=== PATIENT | female | born 1940 | race Caucasian/White ===

== ENCOUNTER → 2016-10-16 | Outpatient (CLI) | payer MEDICARE, OTHER ==
--- NOTE | 2016-10-20 14:48 | MAM ---
EXAM DESCRIPTION: Screening Mammogram,Bilateral CLINICAL HISTORY: 76 yearsFemaleSCREENING. Postmenopausal. Taking HRT five or more years ago.. COMPARISON: Digital 2-D screening bilateral examination 10/15/2015.. Report from prior examination also reviewed. TECHNIQUE: Bilateral CC and MLO projection and LM/ML full-field images, spots digital screening mammographic technique. CAD was utilized. FINDINGS: The breast parenchymal density pattern is: Heterogeneously dense breast tissue, which may obscure small masses. No skin thickening or nipple retraction stable small group of heterogeneous calcifications at the 9:00 position of the posterior third of the left breast. Other bilateral solitary microcalcifications. Bilateral axillary lymph nodes.. No focal, stellate mass or density, focal asymmetry , and no suspicious microcalcifications bilaterally. Stable mammograms compared to the prior study September 2015. IMPRESSION: BI-RADS CATEGORY: 2 - BENIGN FINDINGS. FOLLOW UP: Routine digital bilateral screening, one year interval from September 2016. Written communication explaining the findings and follow-up, will be mailed to the patient and referring health care provider. According to the [employer], yearly mammograms are recommended starting at age 40 and continuing as long as a woman is in good health. Any breast change noted on a breast self-exam should be reported promptly to the patient's healthcare provider. Breast MRI is recommended for women with an approximately 20-25% or greater lifetime risk of breast cancer, including women with a strong family history of breast or ovarian cancer and women who have been treated for Hodgkin's disease. A negative mammographic report should not delay tissue diagnosis in patients with significant clinical history or physical findings. Extremely dense breast tissue limits the sensitivity of digital mammography. Electronically signed by: Ayush Del Cid MD 10/20/2016 2:47 PM CDT
== END ==
LOC: MAMMO 09:00
PROVIDERS: ATTEND Family Medicine
DX: Z12.31 Encounter for screening mammogram for malignant neoplasm of breast (principal)

== ENCOUNTER → 2017-03-12 | Outpatient (CLI) | payer MEDICARE, OTHER | END | disposition home or self-care (01) | LOC: GMAL 10:47 | PROVIDERS: ATTEND Family Medicine | DX: D51.3 Other dietary vitamin B12 deficiency anemia (principal); E55.9 Vitamin D deficiency, unspecified ==

== ENCOUNTER → 2017-04-16 | Outpatient (CLI) | payer OTHER ==
--- NOTE | 2017-04-17 10:56 | US ---
EXAM DESCRIPTION: Soft Tissue,Head/Neck CLINICAL HISTORY: 77 years, Female, THYROID NODULE COMPARISON: None. FINDINGS: Thyroid ultrasound demonstrates mild multinodular goiter. Diffuse inhomogeneity of the parenchymal echotexture.. The right lobe measures 4.4 x 1.8 x 2.5 cm. The left lobe measures 2.5 x 0.9 x 0.9 cm. Several small nodules are seen. No dominant nodule. IMPRESSION: 1. Mild multinodular goiter. Electronically signed by: Dipesh Fox MD 04/17/2017 10:55 AM [facility]
== END ==
LOC: US 09:33
PROVIDERS: ATTEND Family Medicine
DX: E04.1 Nontoxic single thyroid nodule (principal)

== ENCOUNTER → 2017-04-21 | Outpatient (CLI) | payer OTHER | LOC: GMAL 10:35 | PROVIDERS: ATTEND Family Medicine | DX: E04.1 Nontoxic single thyroid nodule (principal) ==

== ENCOUNTER → 2017-10-22 | Outpatient (CLI) | payer OTHER ==
--- NOTE | 2017-10-26 09:50 | MAM ---
EXAM DESCRIPTION: 3D Screening BILATERAL : Digital Mammography. CLINICAL HISTORY: 77 years Female SCREENING . No complaints. Mother with breast cancer. Childbirth. Postmenopausal. Has taken HRT 5 or more years ago. COMPARISON: 2-D digital screening bilateral study 10/16/2016. Reports from prior examinations 2016 and 2015 also reviewed. TECHNIQUE: Bilateral CC and MLO projection full-field images, 3-D tomosynthesis digital mammographic technique. CAD not utilized. FINDINGS: The breast parenchymal density pattern is: Scattered areas of fibroglandular density. No skin thickening or nipple retraction. . Bilateral axillary lymph nodes. Stable small group of calcifications at the 900 clock position of the middle third of the left breast. Stable bilateral solitary coarse and microcalcifications. No new focal, stellate mass or density, focal asymmetry , and no suspicious microcalcifications bilaterally. Stable mammograms compared to prior study, taking into account differences in mammographic technique. IMPRESSION: BI-RADS CATEGORY: 2 - BENIGN FINDINGS. FOLLOW UP: Routine digital bilateral screening, one year interval from October 2017. Written communication explaining the IMPRESSION and follow-up, will be mailed to the patient and referring health care provider. According to the [employer], yearly mammograms are recommended starting at age 40 and continuing as long as a woman is in good health. Any breast change noted on a breast self-exam should be reported promptly to the patient's healthcare provider. Breast MRI is recommended for women with an approximately 20-25% or greater lifetime risk of breast cancer, including women with a strong family history of breast or ovarian cancer and women who have been treated for Hodgkin's disease. A negative mammographic report should not delay tissue diagnosis in patients with significant clinical history or physical findings. Extremely dense breast tissue limits the sensitivity of digital mammography. Electronically signed by: Ayush Del Cid MD 10/26/2017 9:49 AM CDT
== END ==
LOC: MAMMO 14:00
PROVIDERS: ATTEND Family Medicine
DX: Z12.31 Encounter for screening mammogram for malignant neoplasm of breast (principal)

== ENCOUNTER → 2018-04-06 | Outpatient (CLI) | payer OTHER | LOC: GMAL 10:55 | PROVIDERS: ATTEND Family Medicine | DX: D51.3 Other dietary vitamin B12 deficiency anemia (principal); E55.9 Vitamin D deficiency, unspecified ==

== ENCOUNTER → 2018-04-16 | Outpatient (CLI) | payer OTHER ==
--- NOTE | 2018-04-16 14:24 | MRI ---
EXAM DESCRIPTION: Lumbar Spine w/o Contrast : Magnetic Resonance Imaging. CLINICAL HISTORY: RADICULOPATHY COMPARISON: Radiographs of the lumbar spine 04/13/2018. TECHNIQUE: Multiplanar, multiple standard sequences, non contrast MRI, lumbar spine. FINDINGS: L5-S1: Disc space best demonstrated on T2 axial series 501, image 3. Disc desiccation. 2 mm grade 1 anterolisthesis. Marked arthrosis and hypertrophy of the ligament on the right facet more than the left. AP canal diameter 7 mm. Stenosis of the left subarticular recess. Mild left foraminal stenosis and moderate right foraminal stenosis. L4-5: Disc desiccation posterior disc space loss. Minimal posterior disc bulge. AP canal diameter 6.5 mm. Marked arthrosis and hypertrophy of the right facet and ligament impressing on the thecal sac. Moderate right foraminal narrowing. Right subarticular recess stenosis. Minimal left facet arthrosis and ligament hypertrophy. Mild to moderate left foraminal stenosis. L3-4: Diffuse disc space loss with Modic type II endplate reactive changes. Schmorl's nodes and grade 1 retrolisthesis, 2 mm. Posterior midline disc spur complex bulge into the canal with AP canal diameter 10 mm. Bilateral flavum ligament hypertrophy and hypertrophic facet arthrosis more on the left. Low signal tissue in the left subarticular recess possibly a disc or facet spur fragment with stenosis. Also milder stenosis of the right subarticular recess. Borderline mild right foraminal stenosis and severe left foraminal stenosis due to disc spur complex encroachment. L2-3: Modic type II endplate reactive changes predominantly posterior and to the left of midline. Grade 1 retrolisthesis 2 mm. Spur protruding posteriorly more to the left of midline with effacement of the left subarticular recess. Mild canal narrowing. Moderate narrowing of the right foramen. Moderate stenosis left foramen by disc spur complex. Depression and Schmorl's node in the superior L2 endplate with expansion of the desiccated disc. This depression is almost 50%. No marrow edema in the vertebral body or the pedicles. L1-2: Disc desiccation and minimal posterior bulge. Moderate ligament and facet joint hypertrophy and arthrosis impressing on the posterior thecal sac. Mild canal narrowing. Mild narrowing of the right foramen. Disc spur complex on the left encroaching on the foramen with mild to moderate stenosis. T12-L1: Disc desiccation and Schmorl's nodes and endplate irregularities to the left of midline. Diffuse Modic type II endplate reactive changes. Posterior broad-based disc bulge abutting the thecal sac and narrowing the bilateral subarticular recesses. Mild canal narrowing. Right foraminal stenosis secondary to disc osteophyte encroachment. Moderate to severe left foraminal narrowing secondary to disc osteophyte encroachment. Conus terminates at L1. T11-12 disc desiccation with bulge abutting the cord and moderate canal narrowing. Mild to moderate left foraminal narrowing and right foraminal stenosis. T10-11 disc desiccation posterior bulge moderate foraminal narrowing. Moderate to severe right foraminal narrowing and moderate left foraminal narrowing. Moderate L1-L4 dextroscoliosis. Levoscoliosis L4-S1 and T10-L4. Paravertebral soft tissues paraspinal muscle atrophy. Psoas muscle atrophy more on the left than the right.. Normal marrow signal in the remaining vertebral bodies and the posterior elements. Vertebral bodies are not compressed at any level. IMPRESSION: 1. Multilevel disc desiccation, spondylolisthesis, facet arthrosis/hypertrophy, flavum ligament hypertrophy, disc osteophyte complexes projecting on the canal and foramina. Marked mid lumbar dextroscoliosis which is the primary curve. 2. Multifactorial mild canal stenosis L5-S1 and right subarticular recess stenosis encroaching on the right S1 nerve. Left foraminal stenosis. Correlate for left L5 radiculopathy. 3. Moderate multifactorial canal stenosis L4-5. Right subarticular recess stenosis. Left foraminal stenosis. 4. Borderline mild central canal stenosis multifactorial at L3-4. Disc or spur fragment encroaching on the left lateral recess and the descending left L4 nerve. Borderline foraminal stenosis, correlate for bilateral L3 radiculopathy. 5. Moderate left foraminal stenosis at L2-3. Grade 1 retrolisthesis. Effacement of the left subarticular recess. Correlate for left L2 and left L3 radiculopathy. 6. please see findings above for additional comments. Electronically signed by: Ayush Del Cid MD 04/16/2018 2:22 PM [facility]
== END ==
LOC: MRI 10:36
PROVIDERS: ATTEND Family Medicine
DX: M51.16 Intervertebral disc disorders with radiculopathy, lumbar region (principal); M43.16 Spondylolisthesis, lumbar region; M25.78 Osteophyte, vertebrae; M48.062 Spinal stenosis, lumbar region with neurogenic claudication

== ENCOUNTER → 2018-10-25 | Outpatient (CLI) | payer MEDICARE, OTHER ==
--- NOTE | 2018-10-26 16:47 | MAM ---
EXAM DESCRIPTION: 3D Screening BILATERAL : Digital Mammography. CLINICAL HISTORY: 78 years Female Screening . No complaints or personal history of breast cancer. Mother with breast cancer. Childbirth. Hysterectomy 25+ years. HRT 5 or more years ago.. Lifetime risk of developing breast cancer (Tyrer-Cuzick model)(%): 5.4. COMPARISON: Bilateral screening digital breast tomosynthesis 10/22/2017. TECHNIQUE: Bilateral CC and MLO projection full-field images, digital tomosynthesis mammographic technique. Bilateral digital 2-D full-field MLO images. CAD not available for tomosynthesis or 2-D images. FINDINGS: The breast parenchymal density pattern is: Scattered areas of fibroglandular density. No skin thickening or nipple retraction. Bilateral axillary lymph nodes. Bilateral solitary microcalcifications. No new focal, stellate mass or density, focal asymmetry , and no suspicious microcalcifications bilaterally. Stable mammograms compared to prior study. IMPRESSION: Benign exam. BIRAD CATEGORY: 2 BENIGN FINDINGS. RECOMMENDATIONS: FOLLOW UP: Routine digital bilateral mammographic screening, one year interval from October 2018. Written communication explaining the IMPRESSION and follow-up, will be mailed to the patient and referring health care provider. According to the [employer], yearly mammograms are recommended starting at age 40 and continuing as long as a woman is in good health. Any breast change noted on a breast self-exam should be reported promptly to the patient's healthcare provider. Breast MRI is recommended for women with an approximately 20-25% or greater lifetime risk of breast cancer, including women with a strong family history of breast or ovarian cancer and women who have been treated for Hodgkin's disease. A negative mammographic report should not delay tissue diagnosis in patients with significant clinical history or physical findings. Extremely dense breast tissue limits the sensitivity of digital mammography. Electronically signed by: Ayush Del Cid MD 10/26/2018 4:45 PM CDT
== END ==
LOC: MAMMO 07:46
PROVIDERS: ATTEND Family Medicine
DX: Z12.31 Encounter for screening mammogram for malignant neoplasm of breast (principal)

== ENCOUNTER → 2019-04-26 | Outpatient (CLI) | payer OTHER | LOC: GMAL 10:28 | PROVIDERS: ATTEND Family Medicine | DX: D51.3 Other dietary vitamin B12 deficiency anemia (principal); E04.1 Nontoxic single thyroid nodule; E55.9 Vitamin D deficiency, unspecified; R73.9 Hyperglycemia, unspecified; I10 Essential (primary) hypertension; E78.49 Other hyperlipidemia ==

== ENCOUNTER → 2019-10-27 | Outpatient (CLI) | payer OTHER ==
--- NOTE | 2019-10-31 13:56 | MAM ---
EXAM DESCRIPTION: 3D Screening BILATERAL : Digital Mammography. CLINICAL HISTORY: 79 years Female ANNUAL SCREENING . No complaints. Mother with breast cancer at age 70. Menarche age 8. Childbirth age 23. Menopause age 38. No HRT. Lifetime risk of developing breast cancer (Tyrer-Cuzick model)(%): 5.0. COMPARISON: Bilateral screening digital breast tomosynthesis October 2018 and October 2017. TECHNIQUE: Bilateral CC and MLO projection full-field images, digital tomosynthesis mammographic technique. Bilateral digital 2-D full-field MLO images. CAD available for 2-D images. FINDINGS: The breast parenchymal density pattern is: Scattered areas of fibroglandular density. No skin thickening or nipple retraction. Solitary microcalcifications. Right axillary lymph nodes. Intramammary nodular densities and lymph nodes stable. No new focal, stellate mass or density, focal asymmetry , and no suspicious microcalcifications bilaterally. Stable mammograms compared to prior study. IMPRESSION: Benign exam. BIRAD CATEGORY: 2 BENIGN FINDINGS. RECOMMENDATIONS: FOLLOW UP: Routine digital bilateral mammographic screening, one year interval from October 2019. Written communication explaining the IMPRESSION and follow-up, will be mailed to the patient and referring health care provider. According to the [employer], yearly mammograms are recommended starting at age 40 and continuing as long as a woman is in good health. Any breast change noted on a breast self-exam should be reported promptly to the patient's healthcare provider. Breast MRI is recommended for women with an approximately 20-25% or greater lifetime risk of breast cancer, including women with a strong family history of breast or ovarian cancer and women who have been treated for Hodgkin's disease. A negative mammographic report should not delay tissue diagnosis in patients with significant clinical history or physical findings. Extremely dense breast tissue limits the sensitivity of digital mammography. Electronically signed by: Ayush Del Cid MD 10/31/2019 1:55 PM CDT
== END ==
LOC: MAMMO 08:00
PROVIDERS: ATTEND Family Medicine
DX: Z12.31 Encounter for screening mammogram for malignant neoplasm of breast (principal)

== ENCOUNTER → 2020-01-13 | Outpatient (CLI) | payer OTHER ==
--- NOTE | 2020-01-15 06:52 | MRI ---
EXAM DESCRIPTION: Lumbar Spine w/o Contrast : Magnetic Resonance Imaging. CLINICAL HISTORY: SPONDYLOSIS LUMBAR REGION COMPARISON: MRI scan lumbar spine without contrast March 2018. TECHNIQUE: Multiplanar, multiple standard sequences, non contrast MRI, lumbar spine. FINDINGS: L5-S1: The disc is well visualized on axial T2 series 501, image 3. Rudimentary S1-S2 disc space. L5-S1 disc desiccation and disc space maintained. No bulging into the canal. Hypertrophy of the posterior glenohumeral ligaments in the facet joints more right than left. Progressive erosion of the right facet joint. AP canal diameter 9 mm. Stable since the prior study. Right side moderate endplate reactive changes and disc spur complex encroaching on the foramen and nerve root with mild stenosis. Borderline left foraminal stenosis with disc bulge/protrusion into the foramen. Stable since the prior study. L4-L5: Disc desiccation and disc space maintained in the midline and right of midline with moderate spondylosis left and disc spur complex encroaching on the foramen and left L4 nerve root with stenosis. Posterior disc and spurs encroaching on the thecal sac and left subarticular recess stenosis. Marked hypertrophy of the right facet joint with joint space loss and encroachment on the canal again noted. Canal elements also hypertrophied on the left. AP canal diameter 6 cm, decreased to the left of midline stable. Moderate to severe right foraminal narrowing. L3-L4: Moderate loss of disc space more to the left with moderate endplate reactive changes across the disc space. Disc spur complex and marked left foraminal stenosis and encroachment on the left L3 nerve. Hypertrophic changes in the canal elements more left than right with AP canal diameter 10 mm. Borderline right foraminal stenosis abutting the right L3 nerve. No interval change. L2-L3: Disc desiccation and moderate disc space loss particularly in the left of midline with moderate endplate reactive changes. The spur complex encroaching on the right foramen with mild stenosis. Trace retrolisthesis in the canal. Hypertrophic changes in the canal elements more on the left. AP canal diameter 10 mm. Effacement of the left subarticular recess. Moderate to severe narrowing of the right foramen. Stable since the prior study. L1-L2: Disc desiccation.depression of the superior L2 endplate midline with Schmorl's node. Moderate endplate reactive changes left of midline and disc spur complex encroaching on the left foramen and the left L1 nerve. Posterior midline disc bulge. Hypertrophic changes in the canal elements severe on the left encroaching on the thecal sac and the left foramen. Moderate narrowing of the right foramen. No change from the prior study. T12-L1: Moderate endplate reactive changes and disc space loss on the right with endplate changes on the left but less disc space narrowing. Trace retrolisthesis and posterior midline disc osteophyte bulge. Hypertrophic changes in the canal elements more on the left. Moderate to severe left foraminal narrowing and right foraminal stenosis and encroachment on the T12 nerve. Moderate canal narrowing. No interval change. L1-L4 dextroscoliosis. Paravertebral soft tissues muscular atrophy. Cyst inferior right kidney.. Distal cord normal signal and caliber. Normal marrow signal in the remaining vertebral bodies and the posterior elements. Vertebral bodies are not compressed at any level. IMPRESSION: 1. Multiple levels of disc space narrowing and disc desiccation, hypertrophic changes in the facet joints and posterior flavum ligaments, multi focal spondylosis and endplate spurs. 2. Progression erosion of the right facet joint at L5-S1 narrowing the canal and the right foramen. Left foraminal stenosis with disc bulge into the foramen and also central canal stenosis stable since the prior study. 3. Please refer to FINDINGS for discussion of results at other disc space levels. Electronically signed by: Ayush Del Cid MD 01/15/2020 6:50 AM CDT
== END ==
LOC: MRI 08:47
PROVIDERS: ATTEND Family Medicine
DX: M43.06 Spondylolysis, lumbar region (principal); M51.36 Other intervertebral disc degeneration, lumbar region; M46.96 Unspecified inflammatory spondylopathy, lumbar region; M24.28 Disorder of ligament, vertebrae; M53.3 Sacrococcygeal disorders, not elsewhere classified; M25.78 Osteophyte, vertebrae; M48.07 Spinal stenosis, lumbosacral region; M51.87 Other intervertebral disc disorders, lumbosacral region